=== PATIENT | female | born 1965 | race Hispanic/Latino ===

== ENCOUNTER 2024-01-14 17:13 | Emergency (ER) | payer OTHER ==
[~2024-01-14] VITALS: Ht 162.6 cm; Wt 98.4 kg
[2024-01-14 19:47] VITALS: PULSE 62; RESP 16; TEMP 97.4; O2SAT 100
[2024-01-14] MEDS: TETANUS/DIPHTHERIA TOX ADULT 0.5 ML SYR IM ONE (19:58)
[2024-01-14] MEDS ORDERED: BACITRACIN ZINC 0.9GM TP ONE (20:01)
== END 2024-01-14 20:01 | disposition home or self-care (01) ==
LOC: ER 17:44
DX: S90.411A Abrasion, right great toe, initial encounter (principal); W22.09XA Striking against other stationary object, initial encounter; Y93.01 Activity, walking, marching and hiking; Y92.89 Other specified places as the place of occurrence of the external cause; I10 Essential (primary) hypertension; E11.9 Type 2 diabetes mellitus without complications; E78.5 Hyperlipidemia, unspecified; E03.9 Hypothyroidism, unspecified; Z85.42 Personal history of malignant neoplasm of other parts of uterus
CPT/HCPCS: 90471; 90714; 99283